=== PATIENT | male | born 1990 | race Caucasian/White ===

== ENCOUNTER 2021-03-19 08:30 | Observation (INO) ==
[2021-03-19] MEDS ORDERED: Ondansetron 4 MG/2 ML VIAL IVP ONE (09:06)
[2021-03-19] MEDS ORDERED: 0.9 % Sodium Chloride 1,000 ML IVC ONE (09:34)
[2021-03-19 09:41] LABS: Basophils # 0.1 K/mcL (0.0-0.2); Basophils % 0.3 %; Eosinophils # 0.3 K/mcL (0.0-0.6); Eosinophils % 1.3 %; Hematocrit 47.9 % (37.5-50.1); Hemoglobin 16.7 g/dL (12.9-16.9); Immature Granulocytes % 0.3 % (0-4); Lymphocytes # 1.5 K/mcL (0.6-4.6); Lymphocytes % 7.7 %; Mean Corpuscular HGB Conc 34.9 g/dL (31.6-35.5); Mean Corpuscular Hemoglobin 32.2 pg (28.0-33.3); Mean Corpuscular Volume 92.3 fL (83.0-100.0); Mean Platelet Volume 11.3 fL (9.4-12.4); Monocytes # 0.7 K/mcL (0.0-1.3); Monocytes % 3.5 %; Neutrophils # 17.1 K/mcL (1.6-8.9); Platelet Count 236 K/mcL (140-400); Red Blood Count 5.19 M/mcL (4.19-5.50); Red Cell Distribution Width 12.3 % (11.5-14.5); Segmented Neutrophils % 86.9 %; White Blood Count 19.6 K/mcL (4.3-11.1)
[2021-03-19] MEDS ORDERED: Isovue-370 500 ML BOTTLE IVP ONE (09:47)
[2021-03-19 10:01] LABS: Alanine Aminotransferase 19 Units/L (7-52); Albumin 4.7 g/dL (3.5-5.7); Alkaline Phosphatase 64 Units/L (34-104); Amylase 87 Units/L (29-103); Aspartate Amino Transferase 22 Units/L (13-39); BUN/Creatinine Ratio 17 (6-26); Bilirubin,Direct 0.1 mg/dL (0.0-0.2); Bilirubin,Indirect 0.5 mg/dL (0.0-1.0); Bilirubin,Total 0.6 mg/dL (0.3-1.0); Blood Urea Nitrogen 15 mg/dL (6-20); Carbon Dioxide 22 mEq/L (23-29); Chloride 106 mEq/L (98-107); Globulin 2.3 g/dL (2.4-3.5); Glucose 131 mg/dL (70-105); Lipase 72 Units/L (11-82); Osmolality,Calculated 289 (280-300); Potassium 3.9 mEq/L (3.5-5.1); Sodium 138 mEq/L (136-145); eGFR For African Americans > 60 (> 60); eGFR For Non-African Americans > 60 (> 60)
[2021-03-19 10:18] LABS: Bilirubin,Urine Negative (Negative); Blood,Urine Negative (Negative); Clarity,Urine Clear (Clear); Color,Urine Yellow (Yellow); Glucose,Urine (UA) Normal (Normal); Ketones,Urine 20 mg/dL (Negative); Leukocyte Esterase,Urine Negative (Negative); Nitrite,Urine Negative (Negative); PH,Urine 5.5 pH Units (5.0-8.0); Protein,Urine Trace mg/dL (Neg-Trace); Specific Gravity,Urine > 1.030 (1.010-1.025); Urobilinogen,Urine Normal (Normal)
[2021-03-19] MEDS: *HR* FentaNYL (PF) 100 MCG/2 ML VIAL IVP ONE ×2 (10:24→10:26)
[2021-03-19 10:42] LABS: Troponin I 0.06 ng/mL (< 0.04)
[2021-03-19] MEDS ORDERED: Aspirin 81 MG TAB.CHEW PO STA (10:43)
[2021-03-19] MEDS ORDERED: Cefepime HCl 2,000 MG in 0.9 % Sodium Chloride Mini Bag 100 ML IVPB STA (12:21)
[2021-03-19] MEDS ORDERED: Ondansetron ODT 4 MG TAB.RAPDIS SL PRN (12:49)
[2021-03-19] MEDS ORDERED: Naloxone 0.4 MG/ML INJ IVP PRN (12:49)
[2021-03-19] MEDS: Ringers Solution, Lactated 1,000 ML IVC SCH (15:43)
[2021-03-19] MEDS: MetroNIDAZOLE 500 MG/100 ML 500 MG/100 ML BAG IVPB SCH (15:52)
[2021-03-19] MEDS ORDERED: Acetaminophen IV 1,000 MG/100 ML BAG IVPB PRN (17:55)
[2021-03-19] MEDS ORDERED: *HR* HYDROmorphone PF 0.5 MG/0.5 ML SYRINGE IVP PRN (17:55)
[2021-03-19] MEDS ORDERED: *HR* FentaNYL (PF) 100 MCG/2 ML VIAL ONE (18:04)
[2021-03-19] MEDS ORDERED: *HR* Rocuronium Bromide 50 MG/5 ML VIAL ONE (18:04)
[2021-03-19] MEDS ORDERED: Ondansetron 4 MG/2 ML VIAL ONE (18:04)
[2021-03-19] MEDS ORDERED: *HR* Midazolam HCl 2 MG/2 ML VIAL ONE (18:04)
[2021-03-19] MEDS ORDERED: Lidocaine HCL 4 ML Topical Solution (Laryng-O-Jet Kit Sterile Pak) TP ONE (18:04)
[2021-03-19] MEDS ORDERED: *HR* Succinylcholine 200 MG/10 ML VIAL IVP ONE (18:04)
[2021-03-19] MEDS ORDERED: Lidocaine -MPF 2% 5 ML VIAL ONE (18:04)
[2021-03-19] MEDS ORDERED: *HR* Propofol 200 MG/20 ML VIAL IVP ONE (18:05)
[2021-03-19] MEDS ORDERED: Sugammadex Sodium 200 MG/2 ML VIAL IV ONE (18:51)
[2021-03-19] MEDS ORDERED: Ketorolac 30 MG/ML VIAL ONE (18:57)
[2021-03-19] MEDS ORDERED: Dexmedetomidine HCl 400 MCG/100 ML MLS IVC ONE (19:08)
[2021-03-19] MEDS ORDERED: *HR* HYDROMORPHONE 2 MG/ML VIAL ONE (19:12)
[2021-03-20] MEDS: MetroNIDAZOLE 500 MG/100 ML 500 MG/100 ML BAG IVPB SCH ×2 (00:28→08:11)
[2021-03-20] MEDS: Ringers Solution, Lactated 1,000 ML IVC SCH (00:28)
[2021-03-20 06:03] LABS: Hematocrit 41.6 % (37.5-50.1); Mean Corpuscular HGB Conc 34.6 g/dL (31.6-35.5); Mean Corpuscular Hemoglobin 31.9 pg (28.0-33.3); Mean Platelet Volume 11.1 fL (9.4-12.4); Platelet Count 216 K/mcL (140-400); Red Blood Count 4.52 M/mcL (4.19-5.50); Red Cell Distribution Width 12.4 % (11.5-14.5); White Blood Count 22.5 K/mcL (4.3-11.1)
[2021-03-20 06:08] LABS: Hemoglobin 14.4 g/dL (12.9-16.9)
[2021-03-20 06:28] LABS: BUN/Creatinine Ratio 16 (6-26); Blood Urea Nitrogen 14 mg/dL (6-20); Calcium 8.9 mg/dL (8.6-10.3); Carbon Dioxide 25 mEq/L (23-29); Chloride 106 mEq/L (98-107); Glucose 128 mg/dL (70-105); Magnesium 1.5 mg/dL (1.6-2.6); Osmolality,Calculated 290 (280-300); Sodium 139 mEq/L (136-145); eGFR For African Americans > 60 (> 60); eGFR For Non-African Americans > 60 (> 60)
[2021-03-20 07:50] VITALS: BP 143/77; PULSE 98; TEMP 98.1; O2SAT 99
== END 2021-03-20 11:30 | disposition home or self-care (01) ==
LOC: EMEROOARM 08:30 → 3BNU 08:30 → SUATTDRO 13:03 → 3BNU 14:14
PROVIDERS: ADMIT Family Medicine; ATTEND Student in an Organized Health Care Education/Training Program